=== PATIENT | female | born 1940 | race Asian ===

== ENCOUNTER → 2017-11-26 | Outpatient (CLI) | payer OTHER, MEDICAID ==
[~2017-11-26] MED LIST: OMNIPAQUE 350 MG/ML, 100ML BOTTLE ONE
== END | disposition home or self-care (01) ==
LOC: CFH 08:24
PROVIDERS: ATTEND Family Medicine
DX: J43.9 Emphysema, unspecified (principal); R91.1 Solitary pulmonary nodule; I51.7 Cardiomegaly; K80.20 Calculus of gallbladder without cholecystitis without obstruction; K76.0 Fatty (change of) liver, not elsewhere classified; I70.90 Unspecified atherosclerosis; R63.4 Abnormal weight loss
CPT/HCPCS: 71260; 74177; 82565; Q9967